=== PATIENT | female | born 2000 | race Caucasian/White ===

== ENCOUNTER 2023-02-16 09:16 | Emergency (ER) | payer SELFPAY ==
[2023-02-16 09:23] VITALS: BMI 39.3
[2023-02-16] MEDS ORDERED: IBUPROFEN 600 MG TABLET (FP) PO ONE ×2 (09:27→09:39)
[2023-02-16] MEDS ORDERED: ACETAMINOPHEN 500 MG TABLET (FP) PO ONE (09:27)
[2023-02-16] MEDS ORDERED: ACETAMINOPHEN 500 MG TABLET (FP) ONE (09:39)
[2023-02-16] MEDS ORDERED: DEXAMETHASONE SOD PHOSPHATE 10 MG/1 ML VIAL IVPUSH ONE (09:41)
[2023-02-16] MEDS ORDERED: SODIUM CHLORIDE 0.9% 500 ML INFUS.BAG IV ONE (09:41)
[2023-02-16] MEDS ORDERED: ACETAMINOPHEN 1000 MG/100 ML BAG IVPB ONE (09:41)
[2023-02-16] MEDS ORDERED: ACETAMINOPHEN INJECTION 100 ML IVPB ONE (09:49)
[2023-02-16] MEDS ORDERED: DEXAMETHASONE SOD PHOSPHATE 10 MG/1 ML VIAL ONE (09:49)
[2023-02-16 10:00] LABS: HEMATOCRIT 37.8 % (32.4-45.2); HEMOGLOBIN 12.2 GM/dL (10.7-15.3); MCH 22.9 pg (25.7-33.7); MCHC 32.2 g/dl (32.0-36.0); MEAN CELL VOLUME 71.1 fl (80-96); MEAN PLT VOLUME 8.3 fl (7.5-11.1); PLATELET COUNT 308 10^3/uL (134-434); RBC 5.32 M/mm3 (3.60-5.2); RDW 21.4 % (11.6-15.6); WHITE BLOOD COUNT 23.9 K/mm3 (4.0-10.0)
[2023-02-16 10:33] LABS: ANISOCYTOSIS 2+; MACROCYTOSIS 1+
[2023-02-16 11:20] LABS: POTASSIUM 3.3 mmol/L (3.5-5.1)
[2023-02-16 11:22] LABS: ALBUMIN 3.4 g/dl (3.4-5.0); CALCIUM 8.8 mg/dL (8.5-10.1)
[2023-02-16 11:25] LABS: CREATININE 0.6 mg/dL (0.55-1.3)
[2023-02-16 11:27] LABS: BILIRUBIN,TOTAL 0.7 mg/dL (0.2-1)
[2023-02-16] MEDS ORDERED: KETOROLAC TROMETHAMINE 30 MG/1 ML VIAL IVPUSH ONE (13:04)
[2023-02-16] MEDS ORDERED: AMPICILLIN NA/SULBACTAM NA 3 GM in SODIUM CHLORIDE 100 ML IVPB ONE (13:05)
[2023-02-16] MEDS ORDERED: KETOROLAC TROMETHAMINE 30 MG/1 ML VIAL ONE (13:29)
[2023-02-16] MEDS ORDERED: AMPICILLIN NA/SULBACTAM NA 3 GM VIAL ONE (13:29)
[2023-02-16 14:10] VITALS: BP 117/51; PULSE 68; RESP 20; TEMP 98.6
== END 2023-02-16 14:10 | disposition home or self-care (01) ==
LOC: JER 09:16
PROC: 3E03329 Introduction of Other Anti-infective into Peripheral Vein, Percutaneous Approach (ICD-10-PCS; principal; 2023-02-16)
PROC: 3E033NZ Introduction of Analgesics, Hypnotics, Sedatives into Peripheral Vein, Percutaneous Approach (ICD-10-PCS; 2023-02-16)
PROC: 3E0333Z Introduction of Anti-inflammatory into Peripheral Vein, Percutaneous Approach (ICD-10-PCS; 2023-02-16)
PROC: 3E033GC Introduction of Other Therapeutic Substance into Peripheral Vein, Percutaneous Approach (ICD-10-PCS; 2023-02-16)
DX: J02.9 Acute pharyngitis, unspecified (principal); J35.1 Hypertrophy of tonsils; J03.90 Acute tonsillitis, unspecified; R50.9 Fever, unspecified; R53.83 Other fatigue
CPT/HCPCS: 36415; 70491-TC; 80053; 84703; 85025; 87070; 87651; 99285-25; J1100; Q9967